=== PATIENT | male | born 1955 | race Caucasian/White ===

== ENCOUNTER 2021-03-14 09:45 | Day surgery (SDC) | payer MEDICARE, SELFPAY ==
[2021-03-08 10:34] VITALS: BMI 25.1
--- NOTE | 2021-03-09 12:13 | P.CONAN_ITS ---
HPI - Anesthesia Eval Consult details Narrative: 65yo M for Colonoscopy [facility] Past Medical History Medical History (Updated 03/14/21 @ 09:53 by Mayte Nelson RN) Arrhythmia No significant past medical history Surgical History Surgical History (Updated 03/08/21 @ 10:34 by Sandra Stanton) H/O colonoscopy Social History Social History (Updated 03/08/21 @ 10:37 by Sandra Stanton) Household Members: Spouse Patient Tobacco Use Status: Tobacco use Unknown Use of substances other than those prescribed or required for medical reasons: No Advance Directives Information Provided: No Meds Allergies Allergy/AdvReac Type Severity Reaction Status Date / Time metoprolol AdvReac Intermediate lightheaded Verified 03/07/21 13:22 ness weight loss supplements AdvReac Intermediate lightheaded Uncoded 03/07/21 13:23 ness Home Medications Medication Instructions Recorded Confirmed Last Taken Type No Known Home Meds 03/08/21 03/08/21 Unknown History Exam Exam Date and Time: March 09, 2021 1213 Height,Weight and Vital Signs: Height 5 ft 10 in Weight 79.379 kg Assessment and Plan Assessment Anesthesia Assessment: Chart Reviewed
[2021-03-14 10:00] VITALS: BP 151/74; PULSE 56; RESP 16; TEMP 36.3; O2SAT 99
[2021-03-14] MEDS: Lactated Ringers 1,000 ML 100 ML IVCONT (10:13)
--- NOTE | 2021-03-14 10:34 | MHC.SHP ---
Pre-Procedural Eval Section A The patient is an INPATIENT: No Changes since office visit: No Cold of Flu in the past 2 weeks, No New Medical Problems, No Changes in Medication and No Patient answered all questions The History & Physical has been completed within 30 days and I have reviewed it.: Yes Section B Chief Complaint: Screening Allergies: Allergies Allergy/AdvReac Type Severity Reaction Status Date / Time metoprolol AdvReac Intermediate lightheaded Verified 03/07/21 13:22 ness weight loss supplements AdvReac Intermediate lightheaded Uncoded 03/07/21 13:23 ness Plan I have reviewed the history and physical and performed a pertinent physical examination on my patient. No changes have occurred unless specified.
[2021-03-14 11:07] VITALS: BP 90/49; PULSE 46; RESP 16; TEMP 36.3; O2SAT 99
[2021-03-14 11:25] VITALS: BP 110/63; PULSE 49; RESP 18; TEMP 36.3; O2SAT 100
--- NOTE | 2021-03-14 21:20 | OP_ITS ---
SURGEON: Josiah Rodriguez MD INDICATIONS: Colon cancer screening and family history of colon polyps. PREOPERATIVE DIAGNOSIS: POSTOPERATIVE DIAGNOSIS: PROCEDURE PERFORMED: Colonoscopy to the terminal ileum. ESTIMATED BLOOD LOSS: COMPLICATIONS: ANESTHESIA: ASSISTANTS: SPECIMENS: MEDICATIONS: Monitored anesthesia care. DESCRIPTION OF PROCEDURE: History and physical performed. The risks and benefits of the procedure were explained to the patient. Informed consent was obtained and the patient was placed in the left lateral decubitus position. A digital rectal exam was performed, this was normal. The prostate was examined at the patient's request and appeared slightly enlarged consistent with his age, but no nodules were palpated. The Olympus pediatric video colonoscope was introduced into the rectum and advanced to the cecum without difficulty. The cecum was identified by transillumination, palpation, and identification of ileocecal valve. Examination was performed and the scope was removed. He tolerated the procedure well and was taken to recovery area in stable condition. FINDINGS: The terminal ileum was examined and appeared normal. The visualized colonic mucosa was normal. There were undigested seeds and grain, which was suctioned and washed as best possible. This clogged the scope a couple of times that cleared with flushing. The mucosa was normal. No polyps were identified. Retroflexed examination showed small internal hemorrhoids. IMPRESSION: Negative screening colonoscopy. RECOMMENDATIONS: 1. Follow up as needed. 2. Repeat colonoscopy is recommended in 5 years because of family history. MD HUANG Devi/ALO / [id number]
== END 2021-03-14 11:49 | disposition home or self-care (01) ==
PROVIDERS: Visit Provider Internal Medicine Gastroenterology
PROC: 0DJD8ZZ Inspection of Lower Intestinal Tract, Via Natural or Artificial Opening Endoscopic (ICD-10-PCS; CPT 45378; principal; 2021-03-14 09:10)
DX: Z12.11 Encounter for screening for malignant neoplasm of colon (principal); Z83.71 Family history of colonic polyps; Z80.42 Family history of malignant neoplasm of prostate; Z88.8 Allergy status to other drugs, medicaments and biological substances
CPT/HCPCS: G0105